=== PATIENT | male | born 1960 | race Caucasian/White ===

== ENCOUNTER 2020-08-31 15:52 | Emergency (ER) | payer OTHER | END 2020-08-31 18:12 | disposition home or self-care (01) | LOC: FER 15:52 | DX: S81.012A Laceration without foreign body, left knee, initial encounter (principal); I10 Essential (primary) hypertension; Z23 Encounter for immunization; W29.3XXA Contact with powered garden and outdoor hand tools and machinery, initial encounter; Y92.009 Unspecified place in unspecified non-institutional (private) residence as the place of occurrence of the external cause | CPT/HCPCS: 90471; 90715 ==

== ENCOUNTER → 2021-07-18 | Day surgery (SDC) | payer OTHER ==
[~2021-07-18] VITALS: Ht 172.7 cm; Wt 96.4 kg
[~2021-07-18] MED LIST: ATORVASTATIN CA20 MG PO; LISINOPRIL10 MG PO
[2021-07-18 08:13] LABS: HGB 16.8 g/dl (13.2-18.0); MCH 33.2 pg (25.0-31.0); MCV 94.9 fL (78.0-100.0); MPV 10.3 fL (6.0-9.5); RBC 5.06 M/uL (4.70-6.00); RDW 13.5 % (11.5-14.0); WBC 6.6 K/uL (4.0-10.5)
[2021-07-18 08:27] LABS: BILIRUBIN - TOTAL 1.3 mg/dL (0.2-1.0); BUN/CREAT RATIO (CALC) 18.3 RATIO; CREATININE 0.93 mg/dL (0.67-1.17); GLOBULIN (CALCULATION) 3.5 g/dL; POTASSIUM 4.2 mmol/L (3.5-5.1); TOTAL PROTEIN 7.5 g/dL (6.4-8.2)
== END | disposition home or self-care (01) ==
LOC: FAS 07:05
PROVIDERS: Surgery
DX: Z12.11 Encounter for screening for malignant neoplasm of colon (principal); I10 Essential (primary) hypertension; E78.5 Hyperlipidemia, unspecified; Z98.52 Vasectomy status; Z96.641 Presence of right artificial hip joint; Z88.2 Allergy status to sulfonamides; Z80.0 Family history of malignant neoplasm of digestive organs
CPT/HCPCS: 36415; 80053; 93005; J2250; J2704; J7120